=== PATIENT | female | born 1935 | race Caucasian/White ===

== ENCOUNTER 2018-10-09 10:59 | Emergency (ER) | payer MEDICARE | END 2018-10-09 12:41 | disposition home or self-care (01) | LOC: EDH 10:59 | DX: S40.011A Contusion of right shoulder, initial encounter (principal); M25.521 Pain in right elbow; I10 Essential (primary) hypertension; E78.5 Hyperlipidemia, unspecified; I48.91 Unspecified atrial fibrillation; Z87.891 Personal history of nicotine dependence; W18.39XA Other fall on same level, initial encounter; Y93.89 Activity, other specified; Y92.89 Other specified places as the place of occurrence of the external cause; Y99.8 Other external cause status | CPT/HCPCS: 73030; 73080 ==